=== PATIENT | male | born 1990 | race Caucasian/White ===

== ENCOUNTER 2019-03-16 18:47 | Emergency (ER) | payer OTHER ==
--- NOTE | 2019-03-16 19:21 | EDM.PDOC ---
ED HPI GENERAL MEDICAL PROBLEM - General Chief Complaint: Lower Extremity Injury/Pain Stated Complaint: PAIN IN L LEG Time Seen by Provider: 03/16/19 19:11 Source of Information: Reports: Patient History Limitations: Reports: No Limitations - History of Present Illness INITIAL COMMENTS - FREE TEXT/NARRATIVE: Patient comes in with complaints of left calf/lower leg pain. Noticed this at around 0930 this morning. Is undergoing gender transition and is taking hormone therapy with testosterone. No prior dvt history. States he also has some back pain. No reports of SOB, no chest pain, no abdominal pain, nausea, or vomiting. Denies fever, chills. Denies any trauma to the left leg over the last few days or week. No falls, twists, turns, or sudden popping or limited ROM. Onset: Today, Sudden Onset Time: 18:30 Duration: Intermittent Location: Reports: Lower Extremity, Left Quality: Reports: Ache Severity: Mild Worsens with: Reports: Movement Associated Symptoms: Reports: No Other Symptoms - Related Data Allergies Allergy/AdvReac Type Severity Reaction Status Date / Time No Known Drug Allergies Allergy Other Verified 03/16/19 19:17 Home Meds: Home Meds Loratadine [Claritin] 10 mg PO DAILY 02/20/15 [History] buPROPion HCl [Bupropion Xl] 1 tab PO DAILY 02/20/15 [History] Testosterone Cypionate [Depo-Testosterone] 2,000 mg IM ASDIRECTED 03/16/19 [ History] Past Medical History - Past Health History Medical/Surgical History: Denies Medical/Surgical History Other [employer] History: removal of breast tumor, non cancerous Psychiatric History: Reports: Depression ED ROS GENERAL - Review of Systems Review Of Systems: See Below Constitutional: Reports: No Symptoms HEENT: Reports: No Symptoms Respiratory: Reports: No Symptoms Cardiovascular: Reports: No Symptoms Endocrine: Reports: No Symptoms GI/Abdominal: Reports: No Symptoms : Reports: No Symptoms Musculoskeletal: Reports: Leg Pain (left calf and knee) Skin: Reports: No Symptoms Neurological: Reports: No Symptoms Psychiatric: Reports: No Symptoms Hematologic/Lymphatic: Reports: No Symptoms Immunologic: Reports: No Symptoms ED EXAM, GENERAL - Physical Exam Exam: See Below Exam Limited By: No Limitations General Appearance: Alert, WD/WN, No Apparent Distress Eye Exam: Bilateral Eye: EOMI, PERRL Ears: Normal TMs Nose: Normal Inspection, Normal Mucosa, No Blood Throat/Mouth: Normal Inspection, Normal Lips, Normal Teeth, Normal Gums, Normal Oropharynx, Normal Voice, No Airway Compromise Head: Atraumatic, Normocephalic Neck: Normal Inspection, Supple, Non-Tender, Full Range of Motion Respiratory/Chest: No Respiratory Distress, Lungs Clear, Normal Breath Sounds, No Accessory Muscle Use, Chest Non-Tender Cardiovascular: Normal Peripheral Pulses, Regular Rate, Rhythm, No Edema, No Gallop, No JVD, No Murmur, No Rub Peripheral Pulses: 2+: Posterior Tibial (L), Posterior Tibial (R), Dorsalis Pedis (L), Dorsalis Pedis (R) GI/Abdominal: Normal Bowel Sounds, Soft, Non-Tender, No Organomegaly, No Distention, No Abnormal Bruit, No Mass Back Exam: Normal Inspection, Full Range of Motion, NT Extremities: Normal Inspection, Normal Range of Motion, No Pedal Edema, Normal Capillary Refill, Leg Pain (left knee and anterior morillo pain) Neurological: Alert, Oriented, CN II-XII Intact, Normal Cognition, Normal Gait, Normal Reflexes, No Motor/Sensory Deficits Psychiatric: Normal Affect, Normal Mood Skin Exam: Warm, Dry, Intact, Normal Color, No Rash Lymphatic: No Adenopathy Course - Orders/Labs/Meds Orders: Active Orders 24 hr Category Date Time Status CBC WITH AUTO DIFF [HEME] Stat Lab 03/16/19 19:12 Ordered COMPREHENSIVE METABOLIC PN,CMP [CHEM] Stat Lab 03/16/19 19:12 Ordered D Dimer [D-DIMER QUANTITATIVE] [COAG] Stat Lab 03/16/19 19:12 Ordered - Re-Assessments/Exams Free Text/Narrative Re-Assessment/Exam: 03/16/19 20:20 D-dimer negative. Did discuss with patient and family that this indicates that a clot is unlikely and the pain he is having in the left leg is most likely a muscle strain. All questions answered. Departure - Departure Time of Disposition: 20:04 Disposition: Home, Self-Care 01 Condition: Good Clinical Impression: Calf pain - Discharge Information *PRESCRIPTION DRUG MONITORING PROGRAM REVIEWED*: Not Applicable *COPY OF PRESCRIPTION DRUG MONITORING REPORT IN PATIENT SOFÍA: Not Applicable Instructions: Muscle Strain, [id number] Referrals: Jun Brannon MD [Primary Care Provider] - Forms: ED Department Discharge Additional Instructions: Stay well hydrated May use ice or heat for calf pain. May also wrap and elevate Your D-Dimer test was negative so the pain is not a blood clot Some signs of blood clot to watch for include: leg swelling, hot to the touch, red leg, painful to movement and touch Please call if you have any additional questions or concerns - Problem List & Annotations (1) Calf pain SNOMED Code(s): 216400949 Code(s): M79.669 - PAIN IN UNSPECIFIED LOWER LEG Status: Acute Priority: Low Current Visit: Yes Qualifiers: Laterality: left Qualified Code(s): M79.662 - Pain in left lower leg - Problem List Review Problem List Initiated/Reviewed/Updated: Yes - My Orders Last 24 Hours: My Active Orders 03/16/19 19:12 CBC WITH AUTO DIFF [HEME] Stat COMPREHENSIVE METABOLIC PN,CMP [CHEM] Stat D Dimer [D-DIMER QUANTITATIVE] [COAG] Stat - Assessment/Plan Last 24 Hours: My Active Orders 03/16/19 19:12 CBC WITH AUTO DIFF [HEME] Stat COMPREHENSIVE METABOLIC PN,CMP [CHEM] Stat D Dimer [D-DIMER QUANTITATIVE] [COAG] Stat Assessment:: calf pain/strain Plan: Stay well hydrated May use ice or heat for calf pain. May also wrap and elevate Your D-Dimer test was negative so the pain is not a blood clot Some signs of blood clot to watch for include: leg swelling, hot to the touch, red leg, painful to movement and touch Please call if you have any additional questions or concerns
[2019-03-16 19:36] VITALS: BP 136/87
[2019-03-16 19:58] LABS: ANION GAP 17.1 mmol/L (10-20); CHLORIDE,CL 103 mmol/L (98-107); SODIUM,NA 141 mmol/L (136-145)
== END 2019-03-16 20:04 | disposition home or self-care (01) ==
LOC: VM.ED 18:47 → EDSEX 18:47 → VM.ED 20:04
DX: M79.662 Pain in left lower leg (principal); Z79.899 Other long term (current) drug therapy
CPT/HCPCS: 36415; 80053; 85025; 85379; 99283